=== PATIENT | male | born 1975 | race Caucasian/White ===

== ENCOUNTER 2019-07-08 21:32 | Emergency (ER) | payer OTHER, SELFPAY ==
[2019-07-08 22:01] VITALS: BP 123/74; PULSE 92; RESP 16; TEMP 36.8; O2SAT 100; BMI 32.5
[2019-07-08] MEDS: SODIUM CHLORIDE 0.9% 1,000 ML 1000 ML IV (22:07)
[2019-07-08 22:14] LABS: Add Manual Diff / Slide Review NO; Basophils Absolute Auto 100 /uL (0-100); Basophils Percent Auto 0.5 % (0-2); Eosinophils Absolute Auto 100 /uL (0-450); Eosinophils Percent Auto 0.5 % (2-4); Hemoglobin 15.4 g/dL (13.5-17.5); Lymphocytes Absolute Auto 1400 /uL (1100-4500); Lymphocytes Percent Auto 10.7 % (25-40); Mean Corpuscular HGB Conc 33.4 % (30-36); Mean Corpuscular Hemoglobin 28.1 PG (26-34); Mean Corpuscular Volume 84.1 fL (80-100); Monocytes Absolute Auto 1000 /uL (0-900); Monocytes Percent Auto 7.9 % (3-14); Neutrophils Absolute Auto 10600 /uL (1500-7000); Neutrophils Percent Auto 80.4 % (50-75); Platelet Count 267 X10^3/uL (150-400); Red Blood Cell Count 5.47 X10^6/uL (4.5-5.9); Red Cell Distribution Width 13.6 % (11.6-14.8); White Blood Cell Count 13.2 X10^3/uL (4.5-11.0)
[2019-07-08 22:15] LABS: Alanine Aminotransferase 46 IU/L (<50); Albumin 4.7 g/dL (3.5-5.0); Albumin Globulin Ratio 1.6 (1.0-2.8); Alkaline Phosphatase 87 U/L (38-126); Aspartate Aminotransferase 49 IU/L (17-59); BUN Creatinine Ratio 14.5 (6-22); Bilirubin Total 0.6 mg/dL (0.2-1.3); Blood Urea Nitrogen 16 mg/dL (9-20); Calcium 9.5 mg/dL (8.4-10.2); Carbon Dioxide 31 mmol/L (22-32); Chloride 100 mmol/L (98-107); Creatine Kinase 71 U/L (55-170); Estimated Glomerular Filt Rate > 60.0 mL/min (>60); Glucose 115 mg/dL (70-100); HEMOLYSIS 27 (0-50); Potassium 3.9 mmol/L (3.4-5.1); Sodium 138 mmol/L (137-145); Total Protein 7.7 g/dL (6.3-8.2)
[2019-07-08 22:27] LABS: Troponin I < 0.012 ng/mL (0.01-0.034)
--- NOTE | 2019-07-08 22:32 | DI.RAD.S_ITS ---
PROCEDURE: XR CHEST 1V INDICATIONS: syncope TECHNIQUE: One view of the chest was acquired. COMPARISON: None. FINDINGS: Surgical changes and devices: None. Lungs and pleura: Lungs are clear. No pleural effusions or pneumothorax. Mediastinum: Mediastinal contours appear normal. Heart size is normal. Bones and chest wall: No suspicious bony lesions. Overlying soft tissues appear unremarkable. IMPRESSION: 1. No acute cardiopulmonary disease. Dictated by: Christopher Esquivel M.D. on 07/09/2019 at 8:52 Approved by: Christopher Esquivel M.D. on 07/09/2019 at 8:53
[2019-07-08 22:42] VITALS: BP 121/69; PULSE 88; RESP 15; O2SAT 97
[2019-07-08 22:53] LABS: Lipase 75 U/L (23-300)
[2019-07-08 23:08] VITALS: BP 113/70; PULSE 99; RESP 18; O2SAT 97
--- NOTE | 2019-07-08 23:15 | ED_ITS ---
HPI - Syncope General Chief Complaint: Syncope Stated Complaint: passed out at dinner Time Seen by Provider: 07/08/19 22:32 Source: patient and family Mode of arrival: Ambulatory Limitations: no limitations History of Present Illness HPI narrative: This is a 43-year-old male comes to the emergency department with complaint of syncope patient states that he was eating dinner about some 3:00 p.m., he felt lightheaded he went to the bathroom he thought that he might need to throw up. He states he passed out in the bathroom he thinks he was out for about 10 minutes but does not know sure. He states his heart cap on his phone told him his heart rate was 133 during this episode. All when he woke he felt lightheaded and dizzy and warm. He went back outside he has continued to feel nauseated although that has resolved. He never did vomit. States he was sweaty and she every afterwards. States he felt sort of chilled. No fevers. No cough cold or congestion. He had 1 episode of diarrhea afterwards. He has not had any further. No black blood. No incontinence. He denies any swelling in his extremities. He has not had similar symptoms in the past. Denies any headache or vision changes otherwise. He states no shortness of breath currently felt a little bit earlier and maybe had a little bit of chest pain earlier. He also felt a little tingly afterwards. He denies any past medical history, had sinus surgery in April, no allergies. He had 1 alcoholic drink tonight but drinks occasionally. No illicit. No tobacco. Related Data Allergies Allergy/AdvReac Type Severity Reaction Status Date / Time No Known Drug Allergies Allergy Verified 07/08/19 22:01 Review of Systems Review of Systems ROS Unobtainable: All systems reviewed & are unremarkable except as noted in HPI and below Patient History Surgical History (Updated 07/08/19 @ 23:30 by Elena Elam DO) H/O sinus surgery (Acute) Social History Smoking Status: Never smoker Smoking Status: Never smoker alcohol intake frequency: holidays/special occasions only Substance Use Type: does not use Exam Narrative Exam Narrative: GEN: well nourished, well appearing male, alert and oriented x 3, patient appears to be in mild distress. HEENT: Atraumatic, pupils are equal round reactive to light, extraocular movements are intact, nares are clear, moist mucous membranes. HEART: Regular rate and rhythm without murmur, clicks, rubs. Pulses are equal in upper and lower extremities LUNGS:Lungs clear to auscultation, no wheezes, rales, crackles, chest moves symmetrically ABD:bowel sounds normal, soft, non-tender, no guarding, rebound, rigidity, no masses noted, no hepatosplenomegaly :No CVA tenderness MSCL: Non-tender, no muscle atrophy, muscles strength 5/5 upper and lower extremities, full range of motion, normal gait NEURO:CN 2-12 intact, sensation normal Initial Vital Signs Initial Vital Signs: Vital Signs Temperature 98.3 F 07/08/19 22:01 Pulse Rate 92 H 07/08/19 22:01 Respiratory Rate 16 07/08/19 22:01 Blood Pressure 123/74 07/08/19 22:01 Pulse Oximetry 100 07/08/19 22:01 Scores HEART Score Heart Score history: Slightly Suspicious Heart Score EKG: Normal Heart Score Age: < 45 years old Heart Score risk factors: No known risk factors Heart Score troponin: < or = to normal limit Heart Score Total: 0 PERC Score Age greater than or equal to 50 years: No Heart rate greater than or equal to 100 bpm: No Room Air O2 Sat less than 95%: No Unilateral leg swelling: No Recent trauma or surgery: No Hemoptysis: No Prior PE or DVT: No Hormone Use: No Total PERC Score: 0 Course Orders Ordered: ED Orders 07/08/19 21:45 Complete Blood Count AUTO DIFF Stat Comprehensive Metabolic Panel Stat D Dimer Stat Lipase Stat Troponin & CK Cardiac Panel Stat 07/08/19 22:32 XR chest 1V Stat 07/08/19 23:26 CT head/brain wo con Stat 07/08/19 23:45 Troponin & CK Cardiac Panel Stat Discontinued Medications Sodium Chloride (Normal Saline 0.9%) 1,000 mls @ 1,000 mls/hr IV BOLUS ONE Stop: 07/08/19 23:01 Last Infusion: 07/08/19 23:21 Dose: 0 mls/hr Documented by: Admin: 07/08/19 22:07 Dose: 1,000 mls/hr Documented by: ANDREW Vital Signs Vital signs: Vital Signs - 8 hr 07/08/19 22:01 07/08/19 22:42 07/08/19 23:08 Temperature 98.3 F Pulse Rate 92 H 88 99 H Pulse Rate [Orthostatic Lying] Pulse Rate [Orthostatic Sitting] Pulse Rate [Orthostatic Standing] Respiratory Rate 16 15 18 Blood Pressure 123/74 Blood Pressure [Orthostatic Lying] Blood Pressure [Orthostatic Sitting] Blood Pressure [Orthostatic Standing] Blood Pressure [Right Arm] 121/69 113/70 Pulse Oximetry 100 97 97 07/08/19 23:56 07/09/19 00:32 Temperature Pulse Rate 91 H Pulse Rate [Orthostatic Lying] 89 Pulse Rate [Orthostatic Sitting] 97 H Pulse Rate [Orthostatic Standing] 98 H Respiratory Rate 16 Blood Pressure Blood Pressure [Orthostatic Lying] 111/67 Blood Pressure [Orthostatic Sitting] 117/86 Blood Pressure [Orthostatic Standing] 120/87 Blood Pressure [Right Arm] 116/72 Pulse Oximetry 98 MDM - Syncope Lab Data Attestation: I reviewed the patient's lab results. Result diagrams: 07/08/19 21:45 07/08/19 21:45 Labs: Lab Results 07/08/19 07/08/19 07/08/19 Range/Units 21:45 21:45 21:45 WBC 13.2 H (4.5-11.0) X10^3/uL RBC 5.47 (4.5-5.9) X10^6/uL Hgb 15.4 (13.5-17.5) g/dL Hct 46.0 (41-53) % MCV 84.1 (80-100) fL MCH 28.1 (26-34) PG MCHC 33.4 (30-36) % RDW 13.6 (11.6-14.8) % Plt Count 267 (150-400) X10^3/uL Neut % (Auto) 80.4 H (50-75) % Lymph % (Auto) 10.7 L (25-40) % [place] % (Auto) 7.9 (3-14) % Eos % (Auto) 0.5 L (2-4) % Baso % (Auto) 0.5 (0-2) % Neut # (Auto) 53871 H (7091-8687) /uL Lymph # (Auto) 1400 (2144-0488) /uL [place] # (Auto) 1000 H (0-900) /uL Eos # (Auto) 100 (0-450) /uL Baso # (Auto) 100 (0-100) /uL D-Dimer (<230) ng/mL Sodium 138 (137-145) mmol/L Potassium 3.9 (3.4-5.1) mmol/L Chloride 100 (98-107) mmol/L Carbon Dioxide 31 (22-32) mmol/L BUN 16 (9-20) mg/dL Creatinine 1.10 (0.66-1.25) mg/dL Estimated GFR > 60.0 (>60) mL/min BUN/Creatinine Ratio 14.5 (6-22) Glucose 115 H (70-100) mg/dL Calcium 9.5 (8.4-10.2) mg/dL Total Bilirubin 0.6 (0.2-1.3) mg/dL AST 49 (17-59) IU/L ALT 46 (<50) IU/L Alkaline Phosphatase 87 (38-126) U/L Total Creatine Kinase 71 (55-170) U/L CK-MB (CK-2) TNP CK-MB (CK-2) Rel Index TNP Troponin I < 0.012 (0.01-0.034) ng/mL Total Protein 7.7 (6.3-8.2) g/dL Albumin 4.7 (3.5-5.0) g/dL Globulin 3.0 (1.7-4.1) g/dL Albumin/Globulin Ratio 1.6 (1.0-2.8) Lipase 75 (23-300) U/L 07/08/19 07/08/19 Range/Units 21:45 23:45 WBC (4.5-11.0) X10^3/uL RBC (4.5-5.9) X10^6/uL Hgb (13.5-17.5) g/dL Hct (41-53) % MCV (80-100) fL MCH (26-34) PG MCHC (30-36) % RDW (11.6-14.8) % Plt Count (150-400) X10^3/uL Neut % (Auto) (50-75) % Lymph % (Auto) (25-40) % [place] % (Auto) (3-14) % Eos % (Auto) (2-4) % Baso % (Auto) (0-2) % Neut # (Auto) (0002-1339) /uL Lymph # (Auto) (7570-9297) /uL [place] # (Auto) (0-900) /uL Eos # (Auto) (0-450) /uL Baso # (Auto) (0-100) /uL D-Dimer < 200 (<230) ng/mL Sodium (137-145) mmol/L Potassium (3.4-5.1) mmol/L Chloride (98-107) mmol/L Carbon Dioxide (22-32) mmol/L BUN (9-20) mg/dL Creatinine (0.66-1.25) mg/dL Estimated GFR (>60) mL/min BUN/Creatinine Ratio (6-22) Glucose (70-100) mg/dL Calcium (8.4-10.2) mg/dL Total Bilirubin (0.2-1.3) mg/dL AST (17-59) IU/L ALT (<50) IU/L Alkaline Phosphatase (38-126) U/L Total Creatine Kinase 64 (55-170) U/L CK-MB (CK-2) TNP CK-MB (CK-2) Rel Index TNP Troponin I < 0.012 (0.01-0.034) ng/mL Total Protein (6.3-8.2) g/dL Albumin (3.5-5.0) g/dL Globulin (1.7-4.1) g/dL Albumin/Globulin Ratio (1.0-2.8) Lipase (23-300) U/L Urine Dip Bedside Urine Glucose Negative Bedside Urine Bilirubin - Negative Bedside Urine Ketone - Negative Urine Specific [place] 1.010 Bedside Urine Occult Blood - Negative Bedside Urine pH 7.5 Bedside Urine Protein - Negative Bedside Urine Urobilinogen - Negative Bedside Urine Nitrite - Negative Bedside Urine Leukocytes - Negative Esterase Imaging Data Chest x-ray: My impression: No acute process. No pulmonary edema. No fracture. No pneumothorax. No free air. Mild cardiomegaly. CT scan - head: Radiologist's impression: No acute disease of the brain mild mucosal thickening secretions of the left maxillary sinus. ECG Data Attestation: I personally reviewed and interpreted this ECG as follows: Interpretation: Sinus rhythm rate of 96 MN 174 QRS 86 and QTC of 386. No ST elevation. No depression. RSR in 3 and AVF. MDM Narrative Medical decision making narrative: Patient comes in with a syncopal episode unclear exact time frame although patient thought it was more prolonged patient states that his phone zulma for his smart watch had his heart rate at 130 around that time. Patient has been asymptomatic in the department. Normal sinus rhythm without any acute ST changes. Troponin x2 is negative with negative head CT, chest x-ray and no other lab findings that show a clear cause for patient's symptoms. Discussed with patient I would suggest following up with primary care possibly for Holter monitor. Patient did have he states 1 drink of alcohol this evening but denies any other issues. He states that he feels fine at this point with no further symptoms. Discharge Plan Departure Patient Disposition: Home Clinical Impression: Syncope Discharge Date/Time: 07/09/19 01:00 Instructions: DI for Syncope in Adults (Fainting) Activity Restrictions/Additional Instructions: Follow-up with primary care in the next 2-3 days for recheck. Call for an appointment. Make sure drinking plenty of fluids. Return to the emergency department for recurrent symptoms, palpitations, fast heartbeat, lightheadedness, persistent vomiting, new chest pain, shortness of breath, black or bloody stools, swelling in your extremities or other new or concerning symptoms
--- NOTE | 2019-07-08 23:26 | DI.CT.S_ITS ---
PROCEDURE: CT HEAD/BRAIN WO CON INDICATIONS: syncope TECHNIQUE: Noncontrast 4.5 mm thick angled axial sections acquired from the foramen magnum to the vertex, with coronal and sagittal reformats. For radiation dose reduction, the following was used: automated exposure control, adjustment of mA and/or kV according to patient size. COMPARISON: None. FINDINGS: Image quality: Excellent. CSF spaces: Basal cisterns are patent. No extra-axial fluid collections. Ventricles are normal in size and shape. Brain: No intracranial hemorrhage, mass, or mass effect. Stark-white matter interface is preserved. Skull and face: Calvarium and visualized facial bones are intact, without suspicious lesions. Sinuses: Visualized sinuses demonstrate mild mucosal thickening within the left maxillary sinus. Mastoid air cells are clear. IMPRESSION: 1. No acute intracranial abnormality. Dictated by: Christopher Esquivel M.D. on 07/09/2019 at 7:22 Approved by: Christopher Esquivel M.D. on 07/09/2019 at 7:23
[2019-07-08 23:39] LABS: D Dimer < 200 ng/mL (<230)
[2019-07-08 23:56] VITALS: BP 111/67; BP 117/86; BP 120/87; PULSE 89; PULSE 97; PULSE 98
[2019-07-09] LABS: Creatine Kinase 64 U/L (55-170)
[2019-07-09 00:13] LABS: Troponin I < 0.012 ng/mL (0.01-0.034)
[2019-07-09 00:32] VITALS: BP 116/72; PULSE 91; RESP 16; O2SAT 98
== END 2019-07-09 01:00 | disposition home or self-care (01) ==
PROVIDERS: Emergency Provider Emergency Medicine
DX: R55 Syncope and collapse (principal)
CPT/HCPCS: 36415; 70450; 71045; 80053; 81003; 82550; 82553; 83690; 84484; 85025; 85379; 93005; 99283; 99285